=== PATIENT | female | born 1975 | race Caucasian/White ===

== ENCOUNTER → 2020-05-19 | Day surgery (SDC) | payer BC, OTHER ==
[~2020-05-19] MED LIST: ADULT LOW DOSE81 MG PO; AUGMENTIN 875-1 EACH PO; DAILY MULTIPLE1 EAC1 PO; GLUCOPHAGE 500500 MG PO; IBUPROFEN200 M1 PO; LIPITOR TAB 2020 MG PO; NORCO 7.5-3251 EACH PO; NORVASC 5 MG TAB5 MG PO; PREDNISONE20 MG PO; PROZAC10 MG PO; VITAMIN A PO
== END | disposition home or self-care (01) ==
LOC: OR 06:16
DX: J32.9 Chronic sinusitis, unspecified (principal); J34.2 Deviated nasal septum; J34.89 Other specified disorders of nose and nasal sinuses; J34.3 Hypertrophy of nasal turbinates; H69.93 Unspecified Eustachian tube disorder, bilateral; Z88.2 Allergy status to sulfonamides; Z79.899 Other long term (current) drug therapy; Z79.52 Long term (current) use of systemic steroids
CPT/HCPCS: 84703; C1726; J0171; J0690; J1100; J1885; J2001; J2250; J2405; J2704; J2710; J2765; J3010; J7030; J7120

== ENCOUNTER → 2020-09-24 | Outpatient (CLI) | payer BC, OTHER | LOC: LAB 18:26 → LBRF 18:26 | DX: N39.0 Urinary tract infection, site not specified (principal) | CPT/HCPCS: 87077; 87086; 87186 ==